=== PATIENT | female | born 1975 | race Caucasian/White ===

== ENCOUNTER 2017-06-16 18:13 | Emergency (ER) | payer MEDICAID ==
[~2017-06-16] VITALS: Ht 154.9 cm; Wt 56.0 kg
[~2017-06-16 18:13] MED LIST: BUTA1CAP7 PO; CIPR-173 PO; IBUP-727 PO
[2017-06-16 19:18] VITALS: Ht 154.9 cm; Wt 56.0 kg
--- NOTE | 2017-06-16 22:10 | RADRPT ---
PROCEDURE: XR Right Foot. CLINICAL INDICATION: Right foot pain. TECHNIQUE: 3 views. Frontal, lateral, and oblique. COMPARISON: None. FINDINGS: There is no fracture or dislocation. The soft tissues are normal. Articular surfaces are intact. There is no lytic or blastic lesion. There is no radiopaque foreign body. IMPRESSION: 1. Normal images of the right foot. RPTAT: QQ .Eliazar Brooke MD, MD Date Time Electronically viewed and signed by .Eliazar Brooke MD, MD on 06/16/2017 22:10 .R/
--- NOTE | 2017-06-16 22:11 | RADRPT ---
PROCEDURE: XR Right Ankle. CLINICAL INDICATION: Right ankle pain. TECHNIQUE: 3 views. Frontal, lateral, and oblique. COMPARISON: None. FINDINGS: There is no fracture or dislocation. The soft tissues are normal. Articular surfaces are intact. There is no lytic or blastic lesion. There is no radiopaque foreign body. IMPRESSION: 1. Normal images of the right ankle. RPTAT: QQ .Eliazar Brooke MD, MD Date Time Electronically viewed and signed by .Eliazar Brooke MD, MD on 06/16/2017 22:11 .R/
[2017-06-16] MEDS ORDERED: IBUP400T22 PO (22:57)
--- NOTE | 2017-06-16 23:06 | ERD ---
ER Documentation Chief Complaint Date/Time DATE: 06/16/17 TIME: 22:59 Chief Complaint R foot pain; injured hereself yesterday; no swelling/deformity noted HPI Patient is a 42-year-old female who presents to the emergency department for concerns of right foot pain after hurting hit while at the store yesterday. Patient states she had her leg on a metal shelf at the work. Is able to ambulate. Patient denies numbness or tingling. Patient denies any previous fractures or injuries to the affected extremity. Patient denies any headache, nausea, vomiting, chest pain, shortness of breath or LOC. ROS All systems reviewed and are negative except as per history of present illness. Medications Home Meds Active Scripts Ibuprofen* (Motrin*) 400 Mg Tab, 400 MG PO Q6, #20 TAB Prov:ASIYA BECK PA-C 06/16/17 Reported Medications Ciprofloxacin Hcl (Cipro) 500 Mg Tablet, 500 MG PO BID 12/16/11 Mjzibxphia-Puadrjqqzrqiz-Tqonyikt* (Margesic Capsule*) 1 Cap Capsule, 1 CAP PO Q4 12/16/11 Ibuprofen (Motrin) 600 Mg Tablet, 600 MG PO Q6 12/16/11 Allergies Allergies: Coded Allergies: No Known Drug Allergy (Verified Allergy, Unknown, 12/16/11) PMhx/Soc Medical and Surgical Hx: pt denies Medical Hx History of Surgery: Yes (C SECTION) Anesthesia Reaction: No Hx Neurological Disorder: No Hx Respiratory Disorders: No Hx Cardiac Disorders: No Hx Psychiatric Problems: No Hx Miscellaneous Medical Probl: No Hx Alcohol Use: No Hx Substance Use: No Hx Tobacco Use: No Smoking Status: Never smoker Physical Exam Vitals Vital Signs Date Time Temp Pulse Resp B/P Pulse Ox O2 Delivery O2 Flow Rate FiO2 06/16/17 19:18 99.5 72 20 144/87 100 Physical Exam GENERAL: Well-developed, well-nourished female. Appears in no acute distress. HEAD: Normocephalic, atraumatic. EYES: Pupils are equally reactive bilaterally. EOMs grossly intact. No conjunctival erythema. ENT: Moist mucous membranes. No uvula deviation. No kissing tonsils. NECK: Supple. No meningismus. Normal range of motion of the neck. LUNG: Clear to auscultation bilaterally. No rhonchi, wheezing, rales or coarse breath sounds. HEART: Regular rate and rhythm. No murmurs, rubs or gallops. EXTREMITIES: Equal pulses bilaterally. No peripheral clubbing, cyanosis or edema. No unilateral leg swelling. NEUROLOGIC: Alert and oriented. Moving all four extremities without any difficulty. Normal speech. Steady gait. SKIN: Normal color. Warm and dry. No rashes or lesions. RIGHT ANKLE: No deformity, erythema, ecchymosis. No swelling noted over the lateral foot and ankle. Skin intact. Full ROM of the knee and all toes. Decreased range of motion of the ankle secondary to swelling. Nontender palpation of the proximal tibia/fibula, midfoot, fifth metatarsal.. No crepitus. Tender to palpation of the lateral ankle. Sensation intact to light touch. Neurovascularly intact. 2+ DP and DT pulses. Procedures/MDM ED COURSE: The patient was stable throughout ED course. I kept the patient and/or family informed of laboratory and diagnostic imaging results throughout the ED course. DIAGNOSTIC IMAGING: Read by radiologist. Patient: AVERY GALVAN : 1975 Age: 42 Sex: F MR #: [id number] DOS: 06/16/172134 Ordering MD: ASIYA BECK PA-C Location: [facility] Room/Bed: PROCEDURE: XR Right Ankle. CLINICAL INDICATION: Right ankle pain. TECHNIQUE: 3 views. Frontal, lateral, and oblique. COMPARISON: None. FINDINGS: There is no fracture or dislocation. The soft tissues are normal. Articular surfaces are intact. There is no lytic or blastic lesion. There is no radiopaque foreign body. IMPRESSION: 1. Normal images of the right ankle. RPTAT: QQ .Eliazar Brooke MD, Date Time Electronically viewed and signed by .Eliazar Brooke MD, on 06/16/2017 22:11 .R/ CC: ASIYA BECK PA-C Patient: AVERY GALVAN : 1975 Age: 42 Sex: F MR #: [id number] [facility] #: [id number] DOS: 06/16/17 2135 Ordering MD: ASIYA BECK PA-C Location: [facility] Room/Bed: PROCEDURE: XR Right Foot. CLINICAL INDICATION: Right foot pain. TECHNIQUE: 3 views. Frontal, lateral, and oblique. COMPARISON: None. FINDINGS: There is no fracture or dislocation. The soft tissues are normal. Articular surfaces are intact. There is no lytic or blastic lesion. There is no radiopaque foreign body. IMPRESSION: 1. Normal images of the right foot. RPTAT: QQ .Eliazar Brooke MD, MD Date Time Electronically viewed and signed by .Eliazar Brooke MD, on 06/16/2017 22:10 .R/ CC: ASIYA BECK PA-C PROCEDURES: SPLINT APPLICATION: The patient was verbally consented at bedside prior to splint application. Patient was explained the risks, benefits and alternatives to this procedure. The patient was neurovascularly intact prior to and status post application of the splint. The patient tolerated the procedure well with no complications. Splint type: GUMARO wrap Extremity: RLE Indication: ankle/foot sprain MEDICAL DECISION MAKING: This is a 42-year-old female presents with right foot and ankle pain after hitting her right lower leg shelf at the store yesterday.. Vital signs were reviewed. Patient was afebrile. Goal and foot x-rays were unremarkable. Patient was given an Gumaro wrap for comfort measures. Patient was advised to take ibuprofen and perform RICE therapy. Given these findings, the patients presentation is most consistent with foot and ankle sprain. I have a much lower clinical concern for ankle dislocation, tibia fracture, fibula fracture, ankle fracture, tarsal bone fracture, metatarsal fracture, phalangeal fracture, gout, septic joint, reactive arthritis , psoriatic arthritis, DVT, compartment syndrome. At this time, unable to rule out any tendon and ligament injuries. PRESCRIPTIONS: Ibuprofen DISCHARGE: At this time, patient is stable for discharge and outpatient management. She was given a copy of all imaging studies obtained today. RICE therapy and ROM exercises were advised to avoid stiffness. I have instructed the patient to follow-up with his/her primary care physician in 1-2 days. I have discussed with the patient the possibility of needing to see an business operations specialist for further workup and imaging if the pain persists. I have instructed the patient to promptly return to the ER for any new or worsening symptoms including increased pain, swelling, redness, warmth or fever. The patient and/or family expressed understanding of and agreement with this plan. All questions were answered. Home care instructions were provided. Disclaimer: Inadvertent spelling and grammatical errors are likely due to EHR/ dictation software use and do not reflect on the overall quality of patient care. Also, please note that the electronic time recorded on this note does not necessarily reflect the actual time of the patient encounter. Departure Diagnosis: Primary Impression: Foot pain Laterality: right Qualified Code: M79.671 - Right foot pain Condition: Stable Patient Instructions: Sprain Foot Referrals: [facility] YOU HAVE RECEIVED A MEDICAL SCREENING EXAM AND THE RESULTS INDICATE THAT YOU DO NOT HAVE A CONDITION THAT REQUIRES URGENT TREATMENT IN THE EMERGENCY DEPARTMENT. FURTHER EVALUATION AND TREATMENT OF YOUR CONDITION CAN WAIT UNTIL YOU ARE SEEN IN YOUR DOCTORS OFFICE WITHIN THE NEXT 1-2 DAYS. IT IS YOUR RESPONSIBILITY TO MAKE AN APPOINTMENT FOR FOLOW-UP CARE. IF YOU HAVE A PRIMARY DOCTOR --you should call your primary doctor and schedule an appointment IF YOU DO NOT HAVE A PRIMARY DOCTOR YOU CAN CALL OUR PHYSICIAN REFERRAL HOTLINE AT IF YOU CAN NOT AFFORD TO SEE A PHYSICIAN YOU CAN CHOSE FROM THE FOLLOWING [facility] [address] [facility] [address] [facility] [address] [facility] [address] [facility] [address] [facility]. [facility]. [address] [facility] [facility] YOU HAVE RECEIVED A MEDICAL SCREENING EXAM AND THE RESULTS INDICATE THAT YOU DO NOT HAVE A CONDITION THAT REQUIRES URGENT TREATMENT IN THE EMERGENCY DEPARTMENT. FURTHER EVALUATION AND TREATMENT OF YOUR CONDITION CAN WAIT UNTIL YOU ARE SEEN IN YOUR DOCTORS OFFICE WITHIN THE NEXT 1-2 DAYS. IT IS YOUR RESPONSIBILITY TO MAKE AN APPOINTMENT FOR FOLOW-UP CARE. IF YOU HAVE A PRIMARY DOCTOR --you should call your primary doctor and schedule and appointment IF YOU DO NOT HAVE A PRIMARY DOCTOR YOU CAN CALL OUR PHYSICIAN REFERRAL HOTLINE AT . IF YOU CAN NOT AFFORD TO SEE A PHYSICIAN YOU CAN CHOSE FROM THE FOLLOWING [facility] INSTITUTIONS[facility] [address] [place] [address] [facility] [address] [place] [address] [facility] [address] [place] [address] [facility] Hours: Mon-Fri 9:00 AM - 5:00 PM Additional Instructions: Call your primary care doctor TOMORROW for an appointment during the next 1-2 days.See the doctor sooner or return here if your condition worsens before your appointment time. ASIYA BECK PA-C Jun 16, 2017 23:05
[2017-06-16 23:35] VITALS: BP 129/78; PULSE 60; RESP 16; TEMP 98.2
== END 2017-06-16 23:36 | disposition home or self-care (01) ==
LOC: FTE 18:13
DX: M79.671 Pain in right foot (principal)
CPT/HCPCS: 73610; 73630; Z7502